=== PATIENT | female | born 1970 | race Caucasian/White ===

== ENCOUNTER 2019-10-13 13:10 | Emergency (ER) | payer BC ==
[~2019-10-13] VITALS: Ht 177.8 cm; Wt 83.9 kg
--- NOTE | 2019-10-13 13:31 | NUR ---
[id number], L shoulder pain s/p slipped and fall while hiking,pt [id number], -sob, nad noted, vss, pending md yarbrough
[2019-10-13] MEDS ORDERED: ONDANSETRON HCL/PF 4 MG/2 ML VIAL ONE (13:46)
[2019-10-13] MEDS ORDERED: HYDROMORPHONE 1 MG/1 ML DISP.SYRIN ONE (13:46)
--- NOTE | 2019-10-13 13:55 | NUR ---
called for xray
[2019-10-13] MEDS ORDERED: ONDANSETRON HCL/PF 4 MG/2 ML VIAL IVP ONE (14:00)
[2019-10-13] MEDS ORDERED: HYDROMORPHONE INJ 2 MG/ML DISP.SYRIN IV ONE (14:00)
--- NOTE | 2019-10-13 14:30 | NUR ---
per dr chan, pt has a fx, given sling and ice pack
[2019-10-13] MEDS ORDERED: IBUPROFEN 600 MG TABLET PO ONE ×2 (15:00→15:01)
[2019-10-13] MEDS ORDERED: HYDROCODONE/APAP 10/325MG 1 EA TABLET PO ONE (15:00)
[2019-10-13] MEDS ORDERED: HYDROCODONE/APAP 10/325MG 1 EA TABLET ONE (15:01)
--- NOTE | 2019-10-13 15:51 | NUR ---
Patient discharged to home in stable condition. Written and verbal after care instructions given. Patient verbalizes understanding of instruction. IV removed. Catheter intact and site benign. Pressure and 4x4 applied to site. No bleeding noted.
[2019-10-13 17:08] VITALS: BP 125/66
== END 2019-10-13 15:51 | disposition home or self-care (01) ==
LOC: ER 13:29
DX: S42.295A Other nondisplaced fracture of upper end of left humerus, initial encounter for closed fracture (principal); W01.0XXA Fall on same level from slipping, tripping and stumbling without subsequent striking against object, initial encounter; Y93.89 Activity, other specified; Y92.89 Other specified places as the place of occurrence of the external cause; Y99.8 Other external cause status
CPT/HCPCS: 73030; 96374; 96375; 99284; J1170; J2405